=== PATIENT | female | born 1970 | race Caucasian/White ===

== ENCOUNTER 2021-05-17 14:10 | Emergency (ER) | payer BC, SELFPAY ==
[2021-05-17 14:11] VITALS: BP 148/95; PULSE 112; RESP 19; TEMP 35.9; O2SAT 100
[2021-05-17 15:49] VITALS: BP 148/83; PULSE 90; RESP 13; O2SAT 100
[2021-05-17 16:03] VITALS: BP 154/100
--- NOTE | 2021-05-17 16:04 | RAD_ITS ---
History: chest pain EXAMINATION/TECHNIQUE: XR Chest 1 View: Portable COMPARISON: None FINDINGS: LINES/DEVICES: None. LUNGS: No consolidation, edema or effusion. No pneumothorax. MEDIASTINUM AND CARDIOVASCULAR STRUCTURES: Cardiac silhouette not enlarged. Central airways and mediastinal contour are unremarkable. BONES AND SOFT TISSUES: Unremarkable. RAD/Chest 1 View (Portable) IMPRESSION: No radiographic evidence of acute cardiopulmonary disease. at 1642 Reported and signed by: Spenser Schulz MD Electronically Signed: Spenser Schulz MD at 16:41 EDT Tel , Service support ,
--- NOTE | 2021-05-17 16:04 | EKG12_ITS ---
Test Reason : HYPERTENSION Blood Pressure : / mmHG Vent. Rate : 085 BPM Atrial Rate : 085 BPM P-R Int : 162 ms QRS Dur : 080 ms QT Int : 362 ms P-R-T Axes : 045 024 047 degrees QTc Int : 430 ms Normal sinus rhythm Low voltage QRS Confirmed by CATALINA KHANNA, AB ([id number]), telegraph editor MAHNAZ CHRISTENSEN ([id number]) on 05/18/2021 7:37:53 AM Referred By: Confirmed By:AB ARNOLD MD
--- NOTE | 2021-05-17 16:13 | EDS_ITS ---
HPI History of Present Illness Chief Complaint: Neuro S/Sx Detail of Chief Complaint: Cassel flushed today diaphoretic with elevated blood pressure. Informant: patient Onset/Context/Timing Onset: Today Timing: Continuous Current Severity: Mild Maximum Severity: Moderate Narrative Narrative: 42-year-old female no sniffing past medical history. Says she woke up around 230 this morning feeling she was diaphoretic and having a hot flash. Denied any headache, chest pain or abdominal pain. She said she was just pouring sweat later in the morning. Had a coworker check her blood pressure work was 190/100. She is not treated for hypertension. She denies any recent nausea, vomiting, diarrhea or fever no cough or shortness of breath. No headache. Prior similar symptoms: No Recent Illness/Hospitalization: No PFSH PFSH Medical History no medical history Home Medications dicyclomine 20 mg PO ACHS PRN #20 capsule 08/02/15 [Rx Last Taken Unknown] ondansetron HCl 8 mg PO Q8H PRN PRN #10 tablet 08/02/15 [Rx Last Taken Unknown] polyethylene glycol 3350 17 g PO DAILY 08/02/15 [History Last Taken 07/28/15] promethazine 25 mg PO Q8H PRN PRN #12 tab 08/02/15 [Rx Last Taken Unknown] Allergy/AdvReac Type Severity Reaction Status Date / Time hydrochlorothiazide Allergy Rash Verified 05/17/21 14:13 Sulfa (Sulfonamide Allergy Hives Verified 05/17/21 14:13 Antibiotics) Social History Smoking Status: Never smoker ROS ROS ED ROS Narrative Diaphoretic. Review of Systems ROS Unobtainable: Denies due to encephalopathy Constitutional Constitutional ED: Denies chills or fever(s) Eyes Eyes: Denies change in vision ENT ENT ED: Denies ear pain or rhinorrhea Cardiovascular Cardiovascular: Denies chest pain Respiratory/Chest Respiratory/Chest: Denies cough or dyspnea Gastrointestinal Gastrointestinal: Denies abdominal pain, diarrhea, nausea or vomiting Genitourinary Genitourinary ED: Denies dysuria Musculoskeletal Musculoskeletal: Denies myalgias Integumentary Denies rash Neurologic Neurologic: Denies headache(s) Psychiatric Psychiatric: Denies depression Endocrine Endocrinology: Denies polyuria Allergic/Immunologic Allergic/Immunologic ED: Denies urticaria EXAM Physical Exam Narrative Exam Narrative: Nonshow no acute distress initial blood pressure 148/95. Temperature 96 and pulse exam percent room air no signs hypoxia. HEENT exam unremarkable. Neck nontender no thyromegaly. No lymphadenopathy. Lungs clear to auscultation bilaterally. Heart regular rhythm rate about 90 no murmur. Abdomen soft nontender normal bowel sounds no peritoneal signs. Patient moving all 4 extremities. Calves nontender without edema or cords. Back nontender. Skin unremarkable no rashes. Neurologically she is awake alert with no focal motor deficits. Const Vital Signs: 05/17/21 14:11 05/17/21 15:49 05/17/21 16:03 Temperature 96.6 F L Temperature Source Temporal Pulse Rate 112 H 90 Respiratory Rate 19 H 13 Blood Pressure 148/95 H 148/83 H 154/100 H Blood Pressure Mean 112 104 118 Pulse Ox 100 100 Oxygen Delivery Method Room Air Room Air 05/17/21 16:06 05/17/21 17:22 Temperature Temperature Source Pulse Rate 86 Respiratory Rate 16 Blood Pressure 136/83 H Blood Pressure Mean 100 Pulse Ox 100 Oxygen Delivery Method Room Air Room Air Positive well nourished and well developed; Negative for cachectic, contractures or unkempt General Appearance ED: well developed and NAD; Negative for unkempt, cachectic, contractures, cyanotic, diaphoretic or pallor Nutritional Appearance: Negative for cachectic HEENT Reports moist mucous membranes Negative for tenderness Eyes PERRL and EOMs intact bilaterally Neck no lymphadenopathy, supple and no JVD General: Negative for tenderness Chest Wall inspection of chest normal and palpation of chest normal Resp normal respiratory effort and clear to auscultation bilaterally Effort and Inspection: Negative for pain with movement Auscultation: Negative for rales, rhonchi or wheezes Cardio regular rate, regular rhythm, S1 normal heart sound, S2 normal heart sound and no murmurs GI normal to inspection, nondistended, normoactive bowel sounds, non-tender, non- distended and no masses Auscultation: normoactive bowel sounds Palpation: soft; Negative for tender or guarding Back/Spine no CVA tenderness General Back: Negative for CVA tenderness Extremity normal to inspection General Extremety ED: Negative for edema or tenderness General Extremity: Negative for edema Neuro oriented x3 and CN's II-XII intact bilaterally Sensorium / Orientation: alert; Negative for orientation impaired, lethargic or stuporous Motor Exam: strength 5/5 throughout Psych mental status grossly normal Appearance: Negative for unkempt Skin no rashes or lesions noted, no wounds and skin turgor normal General Skin Exam: Negative for jaundice or pallor MDM MDM MDM Narrative Medical decision making narrative: 50-year-old female diaphoretic hypertension. Otherwise has not been ill. Healthy currently on no medications. Exam is bienvenido gn. Repeat exam patient is doing well at 5:45 PM. She is feeling better. Vital signs are stable. We went through all of her test results. Basically her tests x-rays were all normal. The only thing we could find is her TSH was elevated at 6.04 with the upper limits of normal in our lab being 3.74. We discussed options we will hold off on treating any type of thyroid disorder at this time and have her follow-up with her primary care physician have this be rechecked and they can decide if it is significantly abnormal again if they were to start her on some Synthroid or thyroid medication for new onset of hypothyroidism. She and I discussed also this could have just been a hot flash and she may need to follow-up with [facility] to have those levels checked. Lab Data Attestation: I reviewed the patient's lab results. Lab results narrative: CBC shows a white count 9. Hemoglobin 14. Level is 321. Electrolytes normal gap 7 normal BUN and creatinine. Glucose is 90. Troponin . TSH is elevated at 6. UA is negative.. Chest x-ray is negative. Labs: Laboratory Results - last 24 hr 05/17/21 05/17/21 05/17/21 16:00 16:00 16:20 WBC 9.3 RBC 5.14 Hgb 14.2 Hct 45.4 MCV 88.3 MCH 27.6 MCHC 31.3 L RDW Std Deviation 44.2 H RDW Coeff of Alvaro 13.5 Plt Count 321 MPV 10.9 Immature Gran % (Auto) 0.400 Neut % (Auto) 71.6 H Lymph % (Auto) 19.9 [place] % (Auto) 6.3 Eos % (Auto) 1.1 Baso % (Auto) 0.7 Absolute Neuts (auto) 6.7 Absolute Lymphs (auto) 1.86 Nucleated RBC % 0 Sodium 139 Potassium 3.8 Chloride 105 Carbon Dioxide 27.0 Anion Gap 7 BUN 15 Creatinine 0.85 Estim Creat Clear Calc 69.89 Est GFR (MDRD) Af Amer 91 Est GFR (MDRD) Non-Af 76 BUN/Creatinine Ratio 17.6 Glucose 90 Calcium 10.0 Troponin I High Sens 6 TSH 6.04 H Urine Color Yellow Urine Clarity Clear Urine pH 6.0 Ur Specific Powell 1.015 Urine Protein Negative Urine Glucose (UA) Normal Urine Ketones Negative Urine Occult Blood Negative Urine Nitrite Negative Urine Bilirubin Negative Urine Urobilinogen Normal Ur Leukocyte Esterase 25 H Urine RBC 0 SEEN Urine WBC 0-5 SEEN Ur Squamous Epith Cells 0-5 SEEN Urine Bacteria 0 SEEN Urine Mucus 0 SEEN Radiography Chest X-Ray - ED: 1 View, Read by ED Physician, Normal, Heart, Lungs, Mediastinum, Bony Structures, No Acute Disease and Chronic Changes Diagnostic Testing: Radiology Impression Chest X-Ray 05/17/21 16:04 IMPRESSION: No radiographic evidence of acute cardiopulmonary disease. at 1642 Reported and signed by: Spenser Schulz MD Electronically Signed: Spenser Schulz MD at 16:41 EDT Tel , Service support , Normal single view chest x-ray showed no acute abnormality. Rhythm Strip Rhythm Strip: Sinus Rhythm Rate: 85 Ectopy: None EKG Initial EKG: Attestation: I personally reviewed and interpreted this EKG as follows: Interpretation: Sinus Rhythm and No Acute Injury Pattern Comments: Normal sinus rhythm rate 85 no acute signs of [place] or ischemia. Discharge Plan Triage Chief Complaint: Neuro S/Sx ED Provider: Lonnie Mcintyre Dx/Rx/DC Orders Clinical Impression: Hot flash, menopausal, Hypothyroidism Instructions: Common Thyroid Problems, Hormone Changes During Menopause Prescriptions: No Action polyethylene glycol 3350 17 GM Packet 17 g PO DAILY RF: 0 promethazine 25 MG tablet 25 mg PO Q8H PRN PRN (Reason: Nausea) Qty: 12 RF: 0 dicyclomine 10 MG capsule 20 mg PO ACHS PRN (Reason: Abdominal Pain) Qty: 20 RF: 0 ondansetron HCl 8 MG tablet 8 mg PO Q8H PRN PRN (Reason: Nausea) Qty: 10 RF: 0 Primary Care Provider: Wendy Katz Referrals: Wendy Katz MD [Primary Care Provider] - As soon as possible Activity Restrictions/Additional Instructions: Your test today were all normal except your TSH which is the thyroid-stimulating hormone was elevated at 6.04. Normal limits in our lab is 3.74. This would indicate possibly a new onset hypothyroidism. Your doctor can recheck check your thyroid levels to determine if you need to be started on medications. Your symptoms could also have been secondary to a hot flash and your [facility] or your primary care physician can check hormone levels to see if there is anything need to address there. All your other lab work and x-rays were normal and your exam was unremarkable also. Follow-up with your primary care physician for further evaluation of potentially new onset hypothyroidism versus hot flashes due to menopause. Disposition Disposition: Home, Self Care
[2021-05-17] MEDS: 0.9% Normal Saline 1,000 ML 1000 ML IV (16:16)
[2021-05-17 16:17] LABS: Absolute Lymphocyte Count 1.86 X10^3/uL (0.83-4.51); Absolute Neutrophil Count 6.7 X10^3/uL (2.0-7.7); Basophil# 0.07 X10^3/uL; Basophil% 0.7 % (0-1); Eosinophils% 1.1 % (0-5); Hematocrit 45.4 % (37-47); Hemoglobin 14.2 g/dL (12.0-15.0); Lymphocyte # 1.86 X10^3/ul (0.83-4.51); Lymphocyte % 19.9 % (19-41); Mean Corp Hgb Conc 31.3 g/dL (32-36); Mean Corpuscular Hgb 27.6 pg (27.0-32.0); Mean Corpuscular Volume 88.3 fL (81-99); Mean Platelet Vol. 10.9 fl (6.2-12.0); Monocyte# 0.59 X10^3/uL; Monocyte% 6.3 % (0-10); NRBC Flagged by Analyzer 0 % (0-5); Neutrophil # 6.68 X10^3/uL (2.7-7.7); Neutrophil % 71.6 % (47-70); Platelet Count 321 K/mm3 (150-450); RBC Distribution Width CV 13.5 % (11.6-14.6); RBC Distribution Width SD 44.2 fl (35.1-43.9); Red Blood Count 5.14 M/mm3 (4.2-5.4); White Blood Count 9.3 K/mm3 (4.4-11.0)
[2021-05-17 16:24] LABS: Bacteria 0 SEEN /hpf (None Seen); Mucous, Urine 0 SEEN /hpf (<or=2+); Red Blood Cells-Urine 0 SEEN /hpf (0-5)
[2021-05-17 16:39] LABS: Color, Urine Yellow (Yellow); Glucose, Dipstick Normal (Normal); Ketone-Dipstick Negative (Negative); Leukocyte Esterase-Dipstick 25 /ul (Negative); Nitrite-Dipstick Negative (Negative); Occult Blood-Urine Negative /ul (Negative); Protein-Dipstick Negative (Negative); Specific Gravity, Urine 1.015 (1.002-1.030); Urine Bilirubin Dipstick Negative (Negative); Urine Clarity Clear (Clear); Urine Urobilinogen Normal (Normal)
[2021-05-17 16:40] LABS: Anion Gap 7 (5-15); BUN 15 mg/dL (7-18); BUN/Creat Ratio 17.6 RATIO (10-20); Chloride 105 mmol/L (98-107); Creatinine, Serum 0.85 mg/dL (0.55-1.02); EST Glomerular Filtration Rate 76 mL/min (>60); Est Glom Filt Rate - Afr Amer 91 mL/min (>60); Estimated Creatinine Clearance 69.89 ml/min; Glucose 90 mg/dL (74-106); Potassium 3.8 mmol/L (3.5-5.1); Sodium Level 139 mmol/L (136-145); Thyroid Stim Hormone (TSH) 6.04 uIU/mL (0.358-3.74); Troponin-I HS 6 pg/mL (3.0-54.0)
[2021-05-17 17:03] LABS: Squamous Epithelial Cells - UA 0-5 SEEN /hpf (5-10); White Blood Cells 0-5 SEEN /hpf (0-5)
[2021-05-17 17:22] VITALS: BP 136/83; PULSE 86; RESP 16; O2SAT 100
[2021-05-17 17:52] VITALS: BP 133/88; PULSE 89; RESP 10; O2SAT 100
== END 2021-05-17 17:59 | disposition home or self-care (01) ==
PROVIDERS: Emergency Provider Emergency Medicine; PCP Family Medicine
DX: N95.1 Menopausal and female climacteric states (principal); E03.9 Hypothyroidism, unspecified; I10 Essential (primary) hypertension
CPT/HCPCS: 71045; 80048; 81001; 84443; 84484; 85025; 87426; 93005; 96360; 99285